=== PATIENT | female | born 1990 | race Caucasian/White ===

== ENCOUNTER 2018-11-29 06:37 | Inpatient (IN) | payer OTHER ==
[2018-11-29] MEDS ORDERED: GABAPENTIN 300 MG CAP PO ONE (06:46)
[2018-11-29] MEDS ORDERED: ceFAZolin 2 GM/DEXTROSE 100 ML IV ONE (06:46)
[2018-11-29] MEDS ORDERED: ACETAMINOPHEN 500 MG TAB PO ONE (06:46)
[2018-11-29] MEDS ORDERED: EPINEPHrine 1 MG/ML INJ ONE (08:49)
[2018-11-29] MEDS ORDERED: BACITRACIN 50,000 UNITS/10 ML SYR IRR ONE (08:49)
[2018-11-29] MEDS ORDERED: BUPIVACAINE 0.25% 30 ML SDV ONE (08:49)
[2018-11-29] MEDS ORDERED: THROMBIN (BOVINE) 5,000 UNIT VIAL TP ONE (08:50)
[2018-11-29] MEDS ORDERED: CHLORHEXIDINE GLUC HIBICLENS 118 ML BTL TP ONE (08:50)
[2018-11-29] MEDS ORDERED: MIDAZOLAM 2 MG/2 ML VIAL IVP ONE (09:52)
--- NOTE | 2018-11-29 09:54 | PDANEPAE ---
ANE History of Present Illness vps ANE Past Medical History - Cardiovascular History Hx Hypertension: No Hx Arrhythmias: No Hx Chest Pain: No Hx Coronary Artery / Peripheral Vascular Disease: No Hx CHF / Valvular Disease: No Hx Palpitations: No Cardiovascular History Comment: hx of blood clot after son was born in 2013 did lovenox injections x 7 days and with hysterectomy in 2016 - Pulmonary History Hx COPD: No Hx Asthma/Reactive Airway Disease: No Hx Recent Upper Respiratory Infection: No Hx Oxygen in Use at Home: No Hx Sleep Apnea: No Sleep Apnea Screening Result - Last Documented: Negative - Neurologic History Hx Cerebrovascular Accident: No Hx Seizures: No Hx Dementia: No - Endocrine History Hx Diabetes: No Hypothyroid: No Hyperthyroid: No Obesity: mild - Renal History Hx Renal Disorders: No - Liver History Hx Hepatic Disorders: No - Neurological & Psychiatric Hx Hx Neurological and Psychiatric Disorders: No - Cancer History Hx Cancer: No - Congenital Disorder History Hx Congenital Disorders: No - GI History GERD: no Hx Gastrointestinal Disorders: No - Other Health History Other Health History: 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 x2. tubal ligation. partial hysterectomy 2016 ANE Review of Systems Review of Systems: - Exercise capacity Exercise capacity: >=4 METS METS (RN): 4 METS ANE Patient History - Allergies Allergies/Adverse Reactions: doxycycline Allergy (Verified 11/27/18 11:52) Vomiting erythromycin base Allergy (Verified 11/27/18 11:52) Vomiting Sulfa (Sulfonamide Antibiotics) Allergy (Verified 11/27/18 11:52) Hives - Home Medications Home medications: home medication list seen and reviewed Home Medications: Acetaminophen/ASA/Caffeine [Excedrin Tablet (*)] 1 each PO DAILY PRN 11/22/18 [ Last Taken 1 Week Ago ~11/22/18] Ibuprofen [Motrin (*)] 600 mg PO DAILY PRN 11/22/18 [Last Taken 1 Week Ago ~] acetaZOLAMIDE [Diamox Sequel 500mg] 500 mg PO QID 11/22/18 [Last Taken 11/28/18] - NPO status NPO Status: no food or drink >8 hours NPO Since - Liquids (Date): 11/28/18 NPO Since - Liquids (Time): 21:00 NPO Since - Solids (Date): 11/28/18 NPO Since - Solids (Time): 21:00 - Anes Hx Anes Hx: no prior problems - Smoking Hx Smoking Status: Heavy smoker - Family Anes Hx Family Hx Anesthesia Complications: none ANE Labs/Vital Signs - Labs Result Diagrams: 11/29/18 07:13 - Vital Signs Blood Pressure: 119/82 Heart Rate: 84 Respiratory Rate: 16 O2 Sat (%): 96 Height: 160.02 cm Weight: 83.915 kg ANE Physical Exam - Airway Mallampati Score: Class 2 Mouth exam: normal dental/mouth exam - Pulmonary Pulmonary: no respiratory distress - Cardiovascular Cardiovascular: regular rate and rhythym - ASA Status ASA Status: II ANE Anesthesia Plan Anesthesia Plan: general endotracheal anesthesia
[2018-11-29] MEDS ORDERED: PROPOFOL 200 MG/20 ML VIAL ONE (10:01)
[2018-11-29] MEDS ORDERED: ROCURONIUM 50 MG/5 ML VIAL ONE (10:02)
[2018-11-29] MEDS ORDERED: fentaNYL 100 MCG/2 ML INJ ONE ×3 (10:02→12:39)
[2018-11-29] MEDS ORDERED: LIDOCAINE 2% 5 ML SDV ONE (10:02)
[2018-11-29] MEDS ORDERED: DEXAMETHASONE 4 MG/ML VIAL ONE (10:02)
[2018-11-29] MEDS ORDERED: ONDANSETRON 4 MG/2 ML VIAL ONE (10:02)
[2018-11-29] MEDS ORDERED: GENTAMICIN SULFATE 80 MG/2 ML VIAL ONE (10:43)
[2018-11-29] MEDS ORDERED: METOPROLOL TARTRATE 5 MG/5 ML INJ ONE (11:02)
[2018-11-29] MEDS ORDERED: fentaNYL 100 MCG/2 ML INJ IVP PRN (12:08)
[2018-11-29] MEDS ORDERED: ALBUTEROL 3 ML DEYVIAL IH PRN (12:08)
[2018-11-29] MEDS ORDERED: ONDANSETRON 4 MG/2 ML VIAL IVP PRN ×2 (12:08→12:32)
[2018-11-29] MEDS ORDERED: HYDROCODONE/APAP 5/325 TAB PO PRN (12:08)
[2018-11-29] MEDS ORDERED: HYDROmorphONE/DILAUDID 2 MG/ML INJ IVP PRN (12:08)
[2018-11-29] MEDS ORDERED: NALOXONE HCL 0.4 MG/ML INJ IVP PRN (12:08)
[2018-11-29] MEDS ORDERED: LR 500 ML IV PRN (12:08)
[2018-11-29] MEDS ORDERED: SUGAMMADEX SODIUM 200 MG/2 ML VIAL IVP ONE (12:09)
[2018-11-29] MEDS ORDERED: BACITRACIN ZINC 0.5 OZ OINTTUBE TP ONE (12:11)
[2018-11-29] MEDS ORDERED: PROMETHAZINE HCL 25 MG/ML INJ IVP PRN (12:32)
[2018-11-29] MEDS ORDERED: LACTULOSE 20 GM/30 ML UDCUP PO PRN (12:32)
[2018-11-29] MEDS ORDERED: ACETAMINOPHEN/ASA/CAFFEINE 1 EACH TAB PO PRN (12:32)
[2018-11-29] MEDS ORDERED: MAGNESIUM HYDROXIDE 30 ML UDCUP PO PRN (12:32)
[2018-11-29] MEDS ORDERED: BISACODYL 10 MG SUPP PR PRN (12:32)
[2018-11-29] MEDS ORDERED: POLYETHYLENE GLYCOL 3350 17 GM PKT PO PRN (12:32)
--- NOTE | 2018-11-29 12:32 | POSTANESTH ---
Post Anesthetic Evaluation Cardiovascular Status: Normal, Stable Respiratory Status: Normal, Stable Level of Consciousness/Mental Status: Can Participate in Eval Pain Control: Adequate, Prn Tx Ordered Nausea/Vomiting Control: Adequate, Prn Tx Ordered Complications Possibly Related to Anesthesia: None Noted
--- NOTE | 2018-11-29 12:43 | PDHPUP ---
History & Physical Update H&P update statement: This history and physical update is based on an assessment of the patient which was completed after admission or registration (within 24 hours), but prior to the surgery/procedure. H&P update: H&P reviewed & patient examined, no change in patient's condition since H&P completed
[2018-11-29] MEDS ORDERED: NS W/ 20 KCl/L 1,000 ML IV SCH (12:45)
--- NOTE | 2018-11-29 12:46 | POSTOPPROG ---
Post Op Note Date of Operation: 11/29/18 Surgeon: Alex Hogue Non Destructive Evaluation Manager: Saba Soriano PA-C Anesthesia: GET(General Endotracheal) Pre-op Diagnosis: Pseudotumor Post-op Diagnosis: same Procedure: Right sided RECEIVING ASSOCIATE shunt Inf/Abcess present in the surg proc area at time of surgery?: No EBL: Minimal Complications: none observed SOAP Progress Note Assessment/Plan: Assessment: Plan: 11/29/18 12:44 S: Patient doing well, stable in PACU, comfortable. O: NAD, VSS Vision grossly intact PERRL, EOMI JONES X4 Following commands Incisions x3- right frontal behind right ear, abdomen RUQ c/d/i A: 28 yo female sp right sided BP shunt placement for pseudotumor cerebri P: -Admit to med/sirg -Q4 hour neuro checks -Postop CT in am -Shunt series xrays later today -DVT: TEDs, SCDs, Lovenox POD 2 if still in house -ADAT -Activity as tolerated -DC home in am if doing well -Seen by Dr. Hogue in PACU Objective: Vital Signs Temp Pulse Resp BP Pulse Ox 36.9 C 84 16 119/82 H 96 11/29/18 07:08 11/29/18 09:54 11/29/18 09:54 11/29/18 09:54 11/29/18 09:54 Laboratory Results 11/29/18 07:13
--- NOTE | 2018-11-29 13:06 | GOP ---
[f rep st] OPERATIVE REPORT DATE OF OPERATION: 11/29/2018 SURGEON: Alex Hogue MD NEUROSURGEON: Alex Hogue MD. [employer] SAL[employer] CONSULTANT: Saba Alvarez PA-C. ANESTHESIA: General endotracheal. PREOPERATIVE DIAGNOSIS: Pseudotumor cerebri. POSTOPERATIVE DIAGNOSIS: Pseudotumor cerebri. PROCEDURE PERFORMED: Placement of right frontal FERRYBOAT OPERATOR shunt. Use of Stealth stereotactic navigation for catheter placement. FINDINGS: Successful shunt placement. SPECIMENS: There were no specimens. ESTIMATED BLOOD LOSS: Blood loss was 10 mL. DESCRIPTION OF PROCEDURE: After informed consent was obtained from the patient , the patient was brought to the operating room and was placed in supine position on the operating table. A formal time-out was performed, identifying the patient by name, medical record number and date of . Preoperative antibiotics were given and then an endotracheal tube was placed and general endotracheal anesthesia was smoothly induced. The head was turned slightly toward the left side and the stealth navigation with electromagnetic tracking was registered to the scalp and checked for accuracy using known surface landmarks. This was used to localize the entry point of the preplanned trajectory in the right frontal region at Nick point. A curvilinear incision was marked around this area and a postauricular incision was also marked and an incision in the right upper quadrant was also marked. Hair was clipped. The patient was prepped and draped in the normal sterile fashion. 10 mL of 0.25% Marcaine was infiltrated into the skin of each incision for hemostasis. First, the abdominal incision was made using a 10 blade and the subcutaneous tissues were dissected using monopolar electrocautery. The anterior rectus sheath was opened and the rectus muscle was split in line with its fibers. The posterior rectus sheath and peritoneum were then elevated and were opened. The omentum was visualized and a clamp was placed to hold this opening in place. Next, the incision was made on the head and the subcutaneous tissue was dissected and the galea was opened. A subgaleal pocket was created laterally for the valve and then an intervening incision was made behind the ear. A silk tie was passed from the intervening incision to the cranial incision. The shunt passer was then used to pass the shunt in a subcutaneous fashion from the intervening incision down to the abdomen. The distal catheter was passed and then passed up to the cranial incision. The [id number] Certas valve with a performance setting of 3 was then connected to the distal catheter and primed. This was kept in place with a silk tie. This was then placed into its subgaleal pocket. The periosteum was then opened and a small allyson hole was created using the high- speed drill in the area of the preplanned trajectory. The dura was opened using monopolar electrocautery and the lynette was coagulated using bipolar electrocautery. The shunt catheter was then placed onto the navigated stylet and was passed in line with the preplanned trajectory. I did not see good CSF flow at this time, so another pass was taken and again good CSF flow was not well visualized. I then passed a third pass just using surface landmarks and we got excellent brisk flow of CSF from the ventricle, which was clear. The flow of CSF was rather slow, but consistent, consistent with the patient's very small ventricles. At this point, the proximal catheter was connected to the valve and again secured with a silk tie. The catheter was seated into its seat at the allyson hole. Distal flow was confirmed at the end of the distal catheter and this was cut to length and placed into the peritoneal cavity. A light pursestring stitch was placed around the catheter to keep it into the peritoneal cavity. The rectus sheath was then closed using interrupted 3-0 Vicryls. The wound was copiously irrigated and the skin was closed using 3-0 Vicryls and Dermabond. The head wound was copiously irrigated using bacitracin irrigation. The galea was closed using interrupted 3-0 Vicryls and the skin was closed using a running 4-0 Monocryl. The intervening incision was closed using a single external Monocryl. All the wounds were washed and the hair was washed. The sterile dressings were placed and the patient was awakened in the operating room and she was extubated and transferred to the PACU in stable condition. There were no operative complications. I was scrubbed and present for the entire procedure. All sponge and needle and counts were correct at the end of the case. BRIEF CLINICAL HISTORY: The patient is a 28-year-old woman who has been diagnosed by Neurology with idiopathic intracranial hypertension or pseudotumor cerebri. She has had numerous lumbar punctures, which showed elevated pressures and ophthalmologic exam showing papilledema. Her headaches did improve after drainage via lumbar puncture. Therefore, we discussed the possibly of permanent FERRYBOAT OPERATOR shunting, for which she presents electively today. IMPLANTED DEVICES: Codman Certas FERRYBOAT OPERATOR shunt system with proximal and distal catheters, as well as a Codman programmable Certas valve with SiphonGuard device with a performance setting of 3. FLUIDS AND URINE OUTPUT: Per the Anesthesia record. DRAINS: There were no drains. /[id number]/MODL MTDD
--- NOTE | 2018-11-29 13:59 | PDMN ---
Medical Necessity Medical necessity: MCG: S1050 shunt, JEWEL SUPERVISOR 1 day; NEW INPT only: OP: placement of R frontal JEWEL SUPERVISOR shunt
[2018-11-29] MEDS ORDERED: acetaZOLAMIDE 250 MG TAB PO PRN (15:00)
[2018-11-29] MEDS: HYDROCODONE/APAP 10/325 TAB PO PRN ×2 (15:56→21:37)
[2018-11-29] MEDS: KETOROLAC 30 MG/1 ML SDV IVP PRN ×2 (18:50→23:36)
[2018-11-29] MEDS: SENNOSIDES/DOCUSATE SODIUM TAB PO SCH (19:34)
[2018-11-29] MEDS: METHOCARBAMOL 750 MG TAB PO PRN (19:39)
[2018-11-30] MEDS: HYDROCODONE/APAP 10/325 TAB PO PRN ×2 (02:52→09:34)
[2018-11-30] MEDS: KETOROLAC 30 MG/1 ML SDV IVP PRN (06:06)
[2018-11-30] MEDS: METHOCARBAMOL 750 MG TAB PO PRN (06:14)
[2018-11-30] MEDS: SENNOSIDES/DOCUSATE SODIUM TAB PO SCH (09:35)
[2018-11-30 10:40] VITALS: BP 119/80
[2018-11-30] MEDS ORDERED: PNEUMOCOCCAL 0.5ML VACCINE VIAL (PNEUMOVAX 23) IM ONE (11:14)
--- NOTE | 2018-11-30 11:16 | NEUSURGPN ---
Assessment/Plan: A: 28 yo female sp right sided BP shunt placement for pseudotumor cerebri POD1 P: -Q4 hour neuro checks -Postop CT with good position of catheter -Shunt series xrays show intact hardware -DVT: TEDs, SCDs, -ADAT -DC home -Discussed with Dr. Hogue Subjective: Denies any new/worsening headache. Some skin tenderness along shut track Objective: O: NAD, VSS Vision grossly intact PERRL, EOMI JONES X4 5/5 and equal in BUE and BLE Following commands Incisions x3- right frontal behind right ear, abdomen RUQ c/d/i - Physician Discussed Patient with : [facility] Physical Exam - Vitals, I&O, Labs I and O 11/29/18 11/30/18 12/01/18 05:59 05:59 05:59 Intake Total 1900 Output Total 2255 300 Balance -355 -300 Weight 83.915 kg Intake: Oral (ml) 1000 IV Intake (ml) 900 Output: Urine (ml) 2250 300 Toilet 2250 300 Estimated Blood Loss (ml) 5 Emesis (ml) 0 Other: Number of Voids Toilet 1 Number of Stools Toilet 1 Vital Signs Temp Pulse Resp BP Pulse Ox 36.8 C 94 18 119/80 97 11/30/18 10:38 11/30/18 10:38 11/30/18 10:38 11/30/18 10:38 11/30/18 10:38 Laboratory Results 11/29/18 07:13 ICD10 Worksheet Patient Problems: Problems Problem Status Onset Intracranial hypertension, benign Acute - ICD10 Problem Qualifiers (1) Intracranial hypertension, benign
--- NOTE | 2018-11-30 12:12 | ASMTLACE ---
LACE Length of stay for Answers: 2 days current admission Acuity / Level of Answers: Yes Care: Did the patient have an inpatient admission? Comorbidities - select Answers: Opioid dependence all that apply / Chronic pain # of Emergency department Answers: 0 visits in the last 6 months Score: 9 Date Signed: 11/30/2018 12:12 PM Electronically Signed By:ERINN Guy
--- NOTE | 2018-11-30 12:14 | ASMTCMCOM ---
CM Note CM Note Notes: Pt medically stable for d/c. Pt did not have PT prior to dc. No CM d/c needs identified. Date Signed: 11/30/2018 12:13 PM Electronically Signed By:ERINN Guy
== END 2018-11-30 11:49 | disposition home or self-care (01) | DRG 27 ==
LOC: F3N 06:37 → OBSVTOIN 06:37 → F3N 14:46
PROVIDERS: ADMIT Neurological Surgery; ATTEND Neurological Surgery
PROC: 009600Z Drainage of Cerebral Ventricle with Drainage Device, Open Approach (ICD-10-PCS; principal; 2018-11-29 10:45)
DX: G93.2 Benign intracranial hypertension (principal); Z23 Encounter for immunization
CPT/HCPCS: G0008; G0009; J0171; J0690; J1100; J1580; J1885; J2250; J2405; J2704; J3010